=== PATIENT | female | born 1960 | race African-American/Black ===

== ENCOUNTER 2016-10-19 14:02 | Emergency (ER) | payer OTHER ==
[~2016-10-19] VITALS: Ht 167.6 cm; Wt 114.0 kg
[~2016-10-19 14:02] MED LIST: AMLODIPINE BESY10 MG PO; ASPIR 8181 M1 PO; CALCIUM + D3 E1 EACH PO; CLONIDINE HCL0.3 MG PO; COLACE100 MG PO; LISINOPRIL2.5 MG PO; MIRALAX255 GM PO
[2016-10-19] MEDS ORDERED: NORCO 5/3251 TABLET PO (15:36)
[2016-10-19] MEDS ORDERED: LIDOCAINE HCL20 ML MM (15:55)
[2016-10-19 15:57] VITALS: BP 142/87
== END 2016-10-19 16:00 | disposition home or self-care (01) ==
LOC: EME 14:02
PROC: 3E0T3BZ Introduction of Anesthetic Agent into Peripheral Nerves and Plexi, Percutaneous Approach (ICD-10-PCS; principal; 2016-10-19)
DX: K02.9 Dental caries, unspecified (principal); K08.89 Other specified disorders of teeth and supporting structures; E11.9 Type 2 diabetes mellitus without complications; I10 Essential (primary) hypertension; E78.5 Hyperlipidemia, unspecified; Z88.6 Allergy status to analgesic agent
CPT/HCPCS: 99281; 99283; S0020